=== PATIENT | female | born 2005 | race Caucasian/White ===

== ENCOUNTER 2024-09-28 10:56 | Emergency (ER) | payer MEDICAID, SELFPAY ==
[2024-09-28 10:57] VITALS: BMI 23.5
[2024-09-28 11:36] VITALS: BP 123/90; PULSE 97; RESP 16; TEMP 37.1; O2SAT 100; BMI 23.0
--- NOTE | 2024-09-28 11:37 | XR_ITS ---
Examination: Cervical spine 3 views Technique one AP lateral coned AP odontoid cervical spine 3 views Exam date and time: September 28, 2024 1153 hours INDICATIONS: Neck pain today. FINDINGS: Satisfactory alignment cervical vertebral bodies on the lateral view No cervical fracture No significant cervical disc narrowing Cervical thoracic levoscoliosis 12 degrees IMPRESSION: No cervical fracture or significant cervical disc narrowing
--- NOTE | 2024-09-28 12:32 | EDNOTE_ITS ---
ED Neck Injury Pain RME/HPI General Chief Complaint: Neck Pain/Injury Stated Complaint: NECK PAIN Time Seen by Provider: 09/28/24 11:24 Arrival date/time: 09/28/24 10:56 19-year-old female presents to the emergency department complains of neck pain after twisting her neck patient reports no fever nausea or vomiting reports no dizziness or weakness no numbness or tingling Limitations: no limitations Related Data Previous Rx's ?Medication ?Instructions ?Recorded cyclobenzaprine 10 mg tablet 10 mg PO TID PRN muscle spasm 10 09/28/24 days #30 tab-caps ibuprofen 600 mg tablet 600 mg PO Q6H #30 tabs 09/28/24 Allergies Allergy/AdvReac Type Severity Reaction Status Date / Time No Known Allergies Allergy Verified 09/28/24 10:59 Review of Systems Review of Systems Systems Reviewed: All systems reviewed, normal except as documented Constitutional Constitutional: Reports system reviewed and no additional complaints, except as documented, Denies fever(s) and Denies headache(s) Eyes Eyes: Reports system reviewed and no additional complaints, except as documented and Denies blurry vision ENT Ears, Nose, Mouth, and Throat: Reports system reviewed and no additional complaints, except as documented, Denies headache(s), Denies nasal congestion, Denies nasal discharge and Reports neck pain Cardiovascular Cardiovascular: Reports system reviewed and no additional complaints, except as documented, Denies chest pain and Denies dyspnea Respiratory Respiratory: Reports system reviewed and no additional complaints, except as documented, Denies chest congestion, Denies cough and Denies dyspnea Gastrointestinal Gastrointestinal: Reports system reviewed and no additional complaints, except as documented and Denies abdominal pain Musculoskeletal Musculoskeletal: Reports neck pain Integumentary/Breasts Skin/Breast: Reports system reviewed and no additional complaints, except as documented and Denies rash Neurologic Neurologic: Reports system reviewed and no additional complaints, except as documented, Reports as per HPI and Denies headache(s) Past Medical History Past Medical History NEUROLOGIC: Negative Neurological Disorders CARDIAC: Negative Cardiac Disorders or Congestive Heart Failure RESPIRATORY: Negative Chronic Obstructive Pulmonary Disease (COPD) GASTROINTESTINAL: Negative Gastrointestinal Disorders GENITOURINARY: Negative Genitourinary Disorders or Renal Disease MUSCULOSKELETAL: Negative Musculoskeletal Disorders ENDOCRINE: Negative Endocrine Disorders, Diabetes Mellitus Type 1 or Diabetes Mellitus Type 2 HEMATOLOGIC: Negative Blood Disorders PSYCHO/SOCIAL: Positive Depression and Self-Mutilation OTHER HISTORY: Negative Autoimmune Disease or Cancer Family History FAMILY HISTORY: Positive Family Cardiac Disorders Surgical History SURGICAL: Negative Abdominal Surgery, Nephrectomy, Joint Replacement or Mastectomy Social History SMOKING STATUS: Never smoker SUBSTANCE USE: does not use ED Exam General Limitations: Present no limitations General appearance: Present alert and in no apparent distress Head Head exam: Present atraumatic, normocephalic and normal inspection Eye Eye exam: Present normal appearance, PERRL and EOMI; Absent conjunctival injection ENT ENT exam: Present normal exam, normal oropharynx and mucous membranes moist Neck Neck exam: Present normal inspection, full ROM, trachea midline and tenderness Chest Chest inspection: Present normal inspection and symmetric chest wall rise; Absent tenderness Respiratory Respiratory exam: Present normal lung sounds bilaterally; Absent respiratory distress Cardiovascular Cardiovascular exam: Present regular rate, normal rhythm and normal heart sounds Abdominal Exam Abdominal exam: Present soft and normal bowel sounds Extremities Exam Extremities exam: Present normal inspection and full ROM Back Exam Back exam: Present normal inspection and full ROM Neurological Exam Neurological exam: Present alert, oriented X3 and CN II-XII intact Psychiatric Psychiatric exam: Present normal affect and normal mood Skin Skin exam: Present warm, dry, intact and normal color Course Quality Measures none Orders Category Date Time Status XR cervical spine 2-3V Stat Exams 09/28/24 11:37 Completed Vital Signs Vital signs: Vital Signs Temperature 98.7 F 09/28/24 11:36 Pulse Rate 97 09/28/24 11:36 Respiratory Rate 16 09/28/24 11:36 Blood Pressure 123/90 H 09/28/24 11:36 Pulse Oximetry (%) 100 09/28/24 11:36 Oxygen Delivery Method Room Air 09/28/24 11:36 O2 saturation 100% room air within normal limits Neck Pain MDM Narrative MDM Narrative:: 19-year-old female presents to the emergency department complains of neck pain after twisting her neck patient reports no fever nausea or vomiting reports no dizziness or weakness no numbness or tingling On exam patient well-appearing patient does not appear ill or toxic patient is well-appearing acute distress patient walks with steady gait Imaging obtained no acute emergent findings noted Patient discharged home in no distress to follow-up with primary care doctor in the next 24 to 48 hours and for any worsening symptoms to return to the ER immediately Patient data External records reviewed:: [facility] previous records Clinical information provided by:: patient Social determinants that could affect healthcare access:: none Patient has the following chronic illnesses:: None How is presenting disease/condition affected by chronic disease/condition?: no chronic disease Evaluation data The following diagnostics were reviewed and interpreted by me:: radiology exam(s) Lab and/or radiology exams considered but not ordered:: Radiology obtain Interpretation Summary: Reviewed by me Medications / Prescriptions Medications or Prescriptions considered but not ordered:: Given Medication administrations:: Given Consultations Consultation(s) initiated? (list below): No Diagnosis Neck Differential Diagnosis: disc disorder of cervical region, whiplash injury to neck and torticollis Most likely diagnosis given after review of the tests above:: Neck pain Admission Indicated Admission indicated?: not indicated Admission Request Was there a request for admission?: No Disposition Plan Disposition Plan: Discharge Discharge Attestation Discharge Attestation: The patient and all family members were given an opportunity to ask questions and understood the discharge instructions. Discharge instructions specifically effects, indications for sooner follow up or return to the emergency department, and the expected course of current diagnosis. Patient condition: Stable Discharge Plan Plan Patient Disposition: HOME (Self Care) Disposition Comment: Stable Prescriptions/Referrals Prescriptions/Med Rec: New cyclobenzaprine 10 mg tablet 10 mg PO TID PRN (Reason: muscle spasm) 10 Days Qty: 30 0RF ibuprofen 600 mg tablet 600 mg PO Q6H Qty: 30 0RF Problem List Clinical Impression: Neck pain Patient/Caregiver Discharge Instructions Education Materials: ED Neck Pain Additional Instructions: Please follow up with your primary care doctor in the next 24-48hrs for any worsening symptoms return here immediately Print Language: Syrian Stand Alone Forms: Elly Award Info., Work/School Release, Patient Portal Info Letter ELIZABETH/EDWIGE Supervising Physician ELIZABETH/EDWIGE Supervising Physician: Dr Muller
== END 2024-09-28 12:51 | disposition home or self-care (01) ==
PROVIDERS: Emergency Provider Emergency Medicine
DX: M54.2 Cervicalgia (principal)
CPT/HCPCS: 72040; 99283

== ENCOUNTER 2025-02-23 07:12 | Emergency (ER) | payer BC, MEDICAID, SELFPAY ==
[2025-02-23 07:38] VITALS: BP 110/73; PULSE 82; RESP 16; TEMP 36.7; O2SAT 100; BMI 21.8
--- NOTE | 2025-02-23 07:54 | EDNOTE_ITS ---
<Statement entered by Candelaria Rodriguez MD - 02/23/25 08:59> As co-signing physician, I was present and available for consult prn. I concur with the plan and care as documented by the midlevel provider. ED Wound/Laceration-RME/HPI General Chief Complaint: Wound/Laceration Stated Complaint: Laceration to right thumb Time Seen by Provider: 02/23/25 07:13 Arrival date/time: 02/23/25 07:12 20-year-old female presents to the emergency department today for complaints of laceration left hand thumb. Patient reports she accidentally cut herself with a knife today patient reports tetanus up-to-date no chance of Limitations: no limitations Related Data Previous Rx's ?Medication ?Instructions ?Recorded ibuprofen 600 mg tablet 600 mg PO Q6H #30 tabs 09/28 Allergies Allergy/AdvReac Type Severity Reaction Status Date / Time No Known Allergies Allergy Verified 02/23/25 07:13 Review of Systems Review of Systems Systems Reviewed: All systems reviewed, normal except as documented Constitutional Constitutional: Reports system reviewed and no additional complaints, except as documented, Denies fever(s) and Denies headache(s) Eyes Eyes: Reports system reviewed and no additional complaints, except as documented and Denies blurry vision ENT Ears, Nose, Mouth, and Throat: Reports system reviewed and no additional complaints, except as documented, Denies headache(s), Denies nasal congestion and Denies nasal discharge Cardiovascular Cardiovascular: Reports system reviewed and no additional complaints, except as documented, Denies chest pain and Denies dyspnea Respiratory Respiratory: Reports system reviewed and no additional complaints, except as documented, Denies chest congestion, Denies cough and Denies dyspnea Gastrointestinal Gastrointestinal: Reports system reviewed and no additional complaints, except as documented and Denies abdominal pain Integumentary/Breasts Skin/Breast: Reports system reviewed and no additional complaints, except as documented, Denies rash and Reports wounds (Laceration left hand) Neurologic Neurologic: Reports system reviewed and no additional complaints, except as documented, Reports as per HPI and Denies headache(s) Past Medical History Past Medical History NEUROLOGIC: Negative Neurological Disorders CARDIAC: Negative Cardiac Disorders or Congestive Heart Failure RESPIRATORY: Negative Chronic Obstructive Pulmonary Disease (COPD) GASTROINTESTINAL: Negative Gastrointestinal Disorders GENITOURINARY: Negative Genitourinary Disorders or Renal Disease MUSCULOSKELETAL: Negative Musculoskeletal Disorders ENDOCRINE: Negative Endocrine Disorders, Diabetes Mellitus Type 1 or Diabetes Mellitus Type 2 HEMATOLOGIC: Negative Blood Disorders PSYCHO/SOCIAL: Positive Depression and Self-Mutilation OTHER HISTORY: Negative Autoimmune Disease or Cancer Family History FAMILY HISTORY: Positive Family Cardiac Disorders Surgical History SURGICAL: Negative Abdominal Surgery, Nephrectomy, Joint Replacement or Mastectomy Social History SMOKING STATUS: Never smoker SUBSTANCE USE: does not use ED Exam General Limitations: Present no limitations General appearance: Present alert and in no apparent distress Head Head exam: Present atraumatic Eye Eye exam: Present normal appearance, PERRL and EOMI ENT ENT exam: Present normal exam, normal oropharynx and mucous membranes moist Neck Neck exam: Present normal inspection, full ROM and trachea midline Chest Chest inspection: Present normal inspection and symmetric chest wall rise Respiratory Respiratory exam: Present normal lung sounds bilaterally Cardiovascular Cardiovascular exam: Present regular rate, normal rhythm and normal heart sounds Abdominal Exam Abdominal exam: Present soft and normal bowel sounds Extremities Exam Extremities exam: Present full ROM and tenderness; Absent joint swelling Back Exam Back exam: Present normal inspection and full ROM Neurological Exam Neurological exam: Present alert, oriented X3 and CN II-XII intact Psychiatric Psychiatric exam: Present normal affect and normal mood Skin Skin exam: Present warm, dry and other (Laceration left hand) Course Quality Measures none Orders Category Date Time Status Set Up Suture Tray STAT Care 02/23/25 07:59 Completed Wound Care NOW Care 02/23/25 07:59 Completed Lidocaine 1% 20 ml [Xylocaine 1% 20 ML] Med 02/23/25 07:59 Discontinued 20 ml INFL X1 ONE Vital Signs Vital signs: Vital Signs Temperature 98.0 F 02/23/25 07:38 Pulse Rate 82 02/23/25 07:38 Respiratory Rate 16 02/23/25 07:38 Blood Pressure 110/73 02/23/25 07:38 Pulse Oximetry (%) 100 02/23/25 07:38 Oxygen Delivery Method Room Air 02/23/25 07:38 O2 saturation 100% on room air within normal limits Procedures -ED Laceration Laceration 1: Site: hand Side (If applicable): left Size (cm): 3 Description: linear Depth: simple, single layer Local Anesthetic: lidocaine 1% and bupivacaine 0.5% Amount of anesthesia used (mL): 6 Pre-repair: wound explored and irrigated extensively Skin layer closed with: nylon Size (cm): 5-0 Number of sutures: 5 Technique: simple, interrupted Wound / Laceration MDM Narrative MDM Narrative:: 20-year-old female presents to the emergency department today for complaints of laceration left hand thumb. Patient reports she accidentally cut herself with a knife today patient reports tetanus up-to-date no chance of On exam patient well-appearing patient does not appear ill or toxic On exam patient has laceration approximately 3 cm left thumb relatively superficial no evidence of tendon or ligamentous injury Wound irrigated copiously laceration repaired with 5 sutures Patient discharged home in no distress to follow-up with primary care doctor in the next 24 to 48 hours and for any worsening symptoms to return to the ER i mmediately Patient data External records reviewed:: [facility] previous records Clinical information provided by:: patient Social determinants that could affect healthcare access:: none Patient has the following chronic illnesses:: None How is presenting disease/condition affected by chronic disease/condition?: no chronic disease Evaluation data The following diagnostics were reviewed and interpreted by me:: other (specify) (N/A) Lab and/or radiology exams considered but not ordered:: Consider not ordered Interpretation Summary: N/A Medications / Prescriptions Medications or Prescriptions considered but not ordered:: Given Medication administrations:: Medication Administration History Discontinued Medications Lidocaine HCl (Lidocaine Hcl 1% 20 Ml Vial) 20 ml INFL X1 ONE Stop: 02/23/25 08:00 Last Admin: 02/23/25 08:01 Dose: 20 ml Documented By: Comments: ADMINISTERED BY LAURIE Nogueira Consultations Consultation(s) initiated? (list below): No Diagnosis Wound Differential Diagnosis: laceration, abrasion and avulsion of skin Most likely diagnosis given after review of the tests above:: Laceration Admission Indicated Admission indicated?: not indicated Admission Request Was there a request for admission?: No Disposition Plan Disposition Plan: Discharge Discharge Attestation Discharge Attestation: The patient and all family members were given an opportunity to ask questions and understood the discharge instructions. Discharge instructions specifically effects, indications for sooner follow up or return to the emergency department, and the expected course of current diagnosis. Patient condition: Stable Discharge Plan Plan Patient Disposition: HOME (Self Care) Discharge Disposition comment: Stable Prescriptions/Referrals Prescriptions/Med Rec: No Action ibuprofen 600 mg tablet 600 mg PO Q6H Qty: 30 0RF Problem List Clinical Impression: Laceration of left thumb Patient/Caregiver Discharge Instructions Education Materials: ED Laceration: All Closures Additional Instructions: Please follow up with your primary care doctor in the next 24-48hrs for any worsening symptoms return here immediately Please have sutures removed in 10 days Print Language: Chinese Stand Alone Forms: Elly Award Info., Patient Portal Info Letter PA/SEAFOOD HARVESTER Supervising Physician PA/SEAFOOD HARVESTER Supervising Physician: Dr. rodriguez
[2025-02-23] MEDS: LIDOCAINE HCL 1% 20 ML VIAL INFL (08:01)
== END 2025-02-23 08:07 | disposition home or self-care (01) ==
LOC: SERX 08:07
PROVIDERS: Emergency Provider Emergency Medicine; PCP Family Medicine
DX: S61.012A Laceration without foreign body of left thumb without damage to nail, initial encounter (principal); W26.0XXA Contact with knife, initial encounter
CPT/HCPCS: 12002; 99283; J3490

== ENCOUNTER 2025-08-20 17:38 | Emergency (ER) | payer BC, MEDICAID, SELFPAY ==
[2025-08-20 18:22] VITALS: BP 115/81; PULSE 92; RESP 20; TEMP 37.1; O2SAT 97
--- NOTE | 2025-08-20 18:33 | PD.EDNV ---
Nausea/Vomit./Diarrhea-RME/HPI General Chief complaint: Nausea/Vomiting/Diarrhea Stated complaint: Vomiting X 2 days, fever, cough, sore throat Time Seen by Provider: 08/20/25 17:56 Arrival date/time: 08/20/25 17:38 20-year-old female patient came in for evaluation regarding sore throat, fever, nonproductive cough and vomiting has been ongoing for the last 2 days. Denies any abdominal pain denies any chest pain coughing denies any other complaints. No medication was taken prior to ER visit. Related Data Previous Rx's ?Medication ?Instructions ?Recorded ibuprofen 600 mg tablet 600 mg PO Q6H #30 tabs 09/28/24 ondansetron HCl 4 mg tablet 4 mg PO Q8H PRN nausea and 08/20/25 vomiting 4 days #20 tabs Allergies Allergy/AdvReac Type Severity Reaction Status Date / Time No Known Allergies Allergy Verified 08/20/25 17:43 Review of Systems Review of Systems Narrative Review of Systems: Review of system reviewed and within normal limits except mentioned in HPI ED Exam Narrative Physical exam: VITAL SIGNS: Reviewed. GENERAL APPEARANCE: Alert and interactive, follows commands, no acute distress, HEAD AND FACE: Non-traumatic. ENT: PERRL, pink conjunctivitis, eyelid no trauma, Mucous membrane moist. NECK: Supple, nontender, no nuchal rigidity. CHEST: No tenderness, no crepitus, no paradoxical movement, no retractions. LUNGS: Clear, well ventilated, symmetric, no rales, no wheezing, no ronchi, no stridor, good breath sounds bilaterally. HEART: Regular rate, regular rhythm, no murmur, no gallops. ABDOMEN: Soft, positive bowel sounds, nondistended, no guarding, nontender, no rebound, no masses, RECTAL: Deferred. GENITAL: Deferred. NEUROLOGICAL: Gross motor function intact sensory function intact, Appropriate for age. MUSCULOSKELETAL: low back nontender, full range of motion. EXTREMITIES: Nontender, full range of motion. SKIN: Color pink, dry, no rash, no lacerations, no abrasions, no contusions. LYMPHATICS: Deferred. Course Quality Measures none Orders Category Date Time Status HCG Qualitative,Urine Stat Lab 08/20/25 19:30 Completed Strep A Rapid Stat Lab 08/20/25 18:41 Completed UA, C/S IF [Urinalysis, C/S if Indicated] Stat Lab 08/20/25 19:30 Completed Ondansetron Odt [Zofran Odt] Med 08/20/25 18:32 Discontinued 4 mg PO X1 ONE Vital Signs Vital signs: Vital Signs Temperature 98.7 F 08/20/25 18:22 Pulse Rate 92 08/20/25 18:22 Respiratory Rate 20 08/20/25 18:22 Blood Pressure 115/81 08/20/25 18:22 Pulse Oximetry (%) 97 08/20/25 18:22 Oxygen Delivery Method Room Air 08/20/25 18:22 Nausea/Vomiting/Diarrhea MDM Narrative MDM Narrative:: 20-year-old female patient came in for evaluation regarding sore throat, fever, nonproductive cough and vomiting has been ongoing for the last 2 days. Denies any abdominal pain denies any chest pain coughing denies any other complaints. No medication was taken prior to ER visit. Patient's workup today all came back unremarkable. On multiple reevaluation patient cannot be located in the emergency room patient eloped Patient data External records reviewed:: None Clinical information provided by:: patient Social determinants that could affect healthcare access:: none Patient has the following chronic illnesses:: None How is presenting disease/condition affected by chronic disease/condition?: no chronic disease Evaluation data The following diagnostics were reviewed and interpreted by me:: lab results Lab and/or radiology exams considered but not ordered:: None Interpretation Summary: See MDM Medications / Prescriptions Medications / Prescriptions considered but not ordered:: None Medication administrations:: Medication Administration History Discontinued Medications Ondansetron HCl (Ondansetron Odt 4 Mg Tabrap) 4 mg PO X1 ONE; Protocol Stop: 08/20/25 18:33 Last Admin: 08/20/25 18:37 Dose: 4 mg Documented By: EVANGELINA Denny Consultations Consultation(s) initiated? (list below): No Diagnosis Nausea Differential Diagnosis: gastroenteritis and dehydration Most likely diagnosis given after review of the tests above:: Nausea and vomiting Admission Indicated Admission indicated?: not indicated Admission Request Was there a request for admission?: No Disposition Plan Disposition Plan: other (specify) (Elopement) Discharge Plan Plan Patient Disposition: Elopement Prescriptions/Referrals Prescriptions/Med Rec: New ondansetron HCl 4 mg tablet 4 mg PO Q8H PRN (Reason: nausea and vomiting) 4 Days Qty: 20 0RF No Action ibuprofen 600 mg tablet 600 mg PO Q6H Qty: 30 0RF Referrals: Harsha Dueñas MD [Primary Care Provider, Family Practice] - In 1 week Problem List Clinical Impression: Nausea and vomiting Patient/Caregiver Discharge Instructions Print Language: Gabonese Stand Alone Forms: Elly Award Info., Patient Portal Info Letter
[2025-08-20] MEDS: ONDANSETRON ODT 4 MG TABRAP PO (18:37)
[2025-08-20 19:04] LABS: Strep A Rapid Negative (Negative)
[2025-08-20 19:43] LABS: Collection Type, Urine Clean Catch
[2025-08-20 19:49] LABS: HCG Qualitative,Urine Negative
[2025-08-20 19:52] LABS: Bilirubin,Urine Negative (Negative); Blood,Urine Negative (Negative); Clarity,Urine Turbid (Clear/Hazy); Color,Urine Yellow (Lt Yel-Yel); Culture Indicated,Urine Not Indicated; Glucose, Urine Negative (Negative); Ketones,Urine 3+ (Negative); Leukocyte Esterase,Urine Negative (Negative); Nitrite,Urine Negative (Negative); PH,Urine 7.0 (5.0-7.0); Protein,Urine 1+ (Neg - Trace); RBC,Urine 7 /hpf (0-3); Specific Gravity,Urine 1.030 (1.001-1.035); Squamous Epithelial Cell,Urine 11 /hpf (0-5); Urobilinogen,Urine 12 mg/dL (0.0-1.0); WBC,Urine 6 /hpf (0-5)
--- NOTE | 2025-08-20 20:55 | PC.NURSE ---
Pt was called back to get reviewed by provider and was not found in the lobby or outside.
--- NOTE | 2025-08-20 21:15 | PC.NURSE ---
NO ANSWER FOR CALL BACK TO MAIN ED
--- NOTE | 2025-08-20 21:23 | PC.NURSE ---
NO ANSWER FOR CALL BACK TO MAIN ED
== END 2025-08-20 21:24 | disposition left against medical advice (07) ==
PROVIDERS: Nurse Practitioner Family; Emergency Provider Emergency Medicine; PCP Family Medicine
DX: R11.2 Nausea with vomiting, unspecified (principal); Z53.29 Procedure and treatment not carried out because of patient's decision for other reasons
CPT/HCPCS: 81001; 81025; 87651; 99282; Q0162

== ENCOUNTER 2025-09-08 10:18 | Emergency (ER) | payer BC, MEDICAID, SELFPAY ==
[2025-09-08 10:33] VITALS: BP 114/75; PULSE 110; RESP 19; TEMP 37; O2SAT 98; BMI 23.0
--- NOTE | 2025-09-08 10:42 | XR_ITS ---
Examination: Abdomen sonogram, Limited Date and time of exam: September 08, 2025, 1105 hours INDICATIONS: Right upper abdominal pain nausea vomiting beginning midnight Technique: Real-time joe scale transabdominal sonographic images of the upper abdomen obtained. Findings: Negative for gallstones Normal gallbladder wall Common bile duct 0.35 cm Pancreatic head 1.7 cm Liver 16.3 cm no liver lesions Normal hepatopetal portal venous flow Patent IVC IMPRESSION: Negative for cholelithiasis, negative for cholecystitis Normal common bile duct
--- NOTE | 2025-09-08 10:42 | XR_ITS ---
EXAMINATION: PA lateral chest 2 views TECHNIQUE: Upright PA lateral chest 2 views Date and time: September 08, 2025, 11:29 a.m. INDICATIONS: Lower chest pain today. FINDINGS: Normal heart size No lobar pneumonia or pulmonary edema. The osseous structures are intact IMPRESSION: No lobar pneumonia or pulmonary edema
--- NOTE | 2025-09-08 10:43 | EDRME_ITS ---
Rapid Medical Screening Exam [facility] Arrival date/time: 09/08/25 10:18 20-year-old female presents to the Emergency Department for complaints of right- sided chest pain and upper back pain, cough, nausea. Chief Complaint: Shortness of Breath/Dyspnea Vital signs: Vital Signs Temperature 98.6 F 09/08/25 10:33 Pulse Rate 110 H 09/08/25 10:33 Respiratory Rate 19 09/08/25 10:33 Blood Pressure 114/75 09/08/25 10:33 Pulse Oximetry (%) 98 09/08/25 10:33 Oxygen Delivery Method Room Air 09/08/25 10:33 Vital signs reviewed by provider: Yes Exam: On exam patient appears ill but not toxic Clinical Impression: Lab work imaging and EKG obtained
[2025-09-08] MEDS: ONDANSETRON ODT 4 MG TABRAP PO (10:53)
[2025-09-08 11:45] LABS: Basophils # (Auto) 0.1 Thou/mm3 (0.0-0.2); Basophils % (Auto) 0 % (0-2.5); Eosinophils # (Auto) 0.0 Thou/mm3 (0.0-0.5); Eosinophils % (Auto) 0 % (0-10); Hematocrit 38.1 % (36.0-46.0); Hemoglobin 13.0 g/dL (12.0-16.0); Immature Granulocytes Auto 0.04 Thou/mm3 (0.00-0.00); Lymphocytes # (Auto) 0.7 Thou/mm3 (1.0-4.8); Lymphocytes % (Auto) 4 % (10-50); Mean Corpuscular HGB Conc 34.1 g/dl (31.0-37.0); Mean Corpuscular Hemoglobin 31.4 pg (25.0-35.0); Mean Corpuscular Volume 92 fL (80-100); Monocytes # (Auto) 1.2 Thou/mm3 (0.0-0.8); Monocytes % (Auto) 7 % (0-12); Neutrophils # (Auto) 14.8 Thou/mm3 (1.8-7.7); Neutrophils % (Auto) 88 % (37-80); Nucleated Red Blood Cell # 0.00 Thou/mm3 (0.00-0.00); Nucleated Red Blood Cell % 0 /100 WBC (0); Platelet Count 262 Thou/mm3 (140-440); RDW Standard Deviation 39.6 fL (36.4-46.3); Red Blood Count 4.14 Miln/mm3 (4.00-5.20); White Blood Count 16.8 Thou/mm3 (3.6-11.0)
[2025-09-08 11:47] LABS: Alanine Aminotransferase 20 U/L (10-49); Albumin, Serum 5.1 gm/dL (3.5-5.0); Albumin/Globulin Ratio 2.3 (1.2-2.2); Alkaline Phosphatase 54 U/L (46-116); Anion Gap 10 (7-16); Aspartate Amino Transferase 23 U/L (0-34); BUN/Creatinine Ratio 9 Ratio (12-20); Bilirubin,Total 0.9 mg/dL (0.3-1.2); Blood Urea Nitrogen 6 mg/dL (9-23); Calcium 9.2 mg/dL (8.3-10.6); Calcium (Corrected) 9.2 mg/dL (8.5-10.1); Carbon Dioxide 26.2 mMol/L (20.0-31.0); Chloride 107 mMol/L (98-107); Creatinine (Component) 0.7 mg/dL (0.6-1.3); Estimated Creatinine Clearance 114.4 mL/min (>60); Globulin 2.2 gm/dL (2.3-3.5); Glucose 141 mg/dL (74-106); Lipase 21 U/L (12-53); Magnesium 1.8 mg/dL (1.6-2.6); Osmolality,Calculated 284 (275-295); Potassium 4.5 mMol/L (3.4-5.1); Sodium 143 mMol/L (136-145); Total Protein 7.3 gm/dL (5.7-8.2); Troponin I < 0.002 ng/mL (0.0-0.045); eGFR > 60 See Note
[2025-09-08 11:48] LABS: D-Dimer < 250 ng/mL (<600)
[2025-09-08 12:21] LABS: Collection Type, Urine Clean Catch
[2025-09-08 12:37] LABS: HCG Qualitative,Urine Negative
[2025-09-08 12:46] LABS: Bilirubin,Urine Negative (Negative); Blood,Urine 2+ (Negative); Clarity,Urine Turbid (Clear/Hazy); Color,Urine Yellow (Lt Yel-Yel); Glucose, Urine Negative (Negative); Hyaline Casts,Urine < 1 /hpf (0-1); Ketones,Urine Trace (Negative); Leukocyte Esterase,Urine Negative (Negative); Nitrite,Urine Negative (Negative); PH,Urine 6.0 (5.0-7.0); Protein,Urine 1+ (Neg - Trace); RBC,Urine 3 /hpf (0-3); Specific Gravity,Urine 1.033 (1.001-1.035); Squamous Epithelial Cell,Urine 4 /hpf (0-5); Urobilinogen,Urine Negative mg/dL (0.0-1.0); WBC,Urine 13 /hpf (0-5)
[2025-09-08 12:51] LABS: Amphetamine/Methamp Scrn,U Negative (Negative); Barbiturate Screen,Urine Negative (Negative); Benzodiazepines Screen,Urine Negative (Negative); Benzoylecgonine Screen, Ur Negative (Negative); Fentanyl Screen,Urine Negative (Negative); Opiate Screen,Urine Negative (Negative); THC Screen,Urine Positive (Negative)
[2025-09-08 12:52] LABS: Culture Indicated,Urine Yes
[2025-09-08 14:04] VITALS: BP 120/75; PULSE 107; RESP 20; TEMP 36.9; O2SAT 98
--- NOTE | 2025-09-08 15:28 | PD.EDNV ---
Nausea/Vomit./Diarrhea-RME/HPI General Chief complaint: Shortness of Breath/Dyspnea Stated complaint: R) UPPER CHEST PAIN, DYSPNEA, VOMITING SINCE MN Time Seen by Provider: 09/08/25 12:54 Arrival date/time: 09/08/25 10:18 20-year-old female patient came in for evaluation regarding vomiting. Onset of symptoms since midnight as sudden onset of right subcostal pain, described as dull ache, severity moderate associated with shortness of breath, vomiting, nonbloody. Patient denies any fever denies any cough denies any trauma to the chest. Denies any other complaints no medication was taken prior to ER visit. Patient admits to be smoking marijuana. RME / HPI RME / HPI Narrative: 09/08/25 10:18 20-year-old female presents to the Emergency Department for complaints of right-sided chest pain and upper back pain, cough, nausea. Exam: On exam patient appears ill but not toxic Impression: Lab work imaging and EKG obtained Related Data Previous Rx's ?Medication ?Instructions ?Recorded ibuprofen 600 mg tablet 600 mg PO Q6H #30 tabs 09/28/24 ibuprofen 600 mg tablet 600 mg PO Q8H PRN pain #30 tabs 09/08/25 metoclopramide HCl 10 mg tablet 10 mg PO Q6H PRN nausea and 09/08/25 (Reglan) vomiting #30 tabs Allergies Allergy/AdvReac Type Severity Reaction Status Date / Time No Known Allergies Allergy Verified 09/08/25 10:21 Review of Systems Review of Systems Narrative Review of Systems: Review of system reviewed and within normal limits except mentioned in HPI ED Exam Narrative Physical exam: VITAL SIGNS: Reviewed. GENERAL APPEARANCE: Alert and interactive, follows commands, no acute distress, HEAD AND FACE: Non-traumatic. ENT: PERRL, pink conjunctivitis, eyelid no trauma, Mucous membrane moist. NECK: Supple, nontender, no nuchal rigidity. CHEST: No tenderness, no crepitus, no paradoxical movement, no retractions. LUNGS: Clear, well ventilated, symmetric, no rales, no wheezing, no ronchi, no stridor, good breath sounds bilaterally. HEART: Regular rate, regular rhythm, no murmur, no gallops. ABDOMEN: Soft, positive bowel sounds, nondistended, no guarding, right subcostal tenderness, no rebound, no masses, RECTAL: Deferred. GENITAL: Deferred. NEUROLOGICAL: Gross motor function intact sensory function intact, Appropriate for age. MUSCULOSKELETAL: low back nontender, full range of motion. EXTREMITIES: Nontender, full range of motion. SKIN: Color pink, dry, no rash, no lacerations, no abrasions, no contusions. LYMPHATICS: Deferred. Course Quality Measures none Orders Category Date Time Status EKG (ED ONLY) *Do not use* NOW Care 09/08/25 10:38 Completed EKG (ED Only) Stat Exams 09/08/25 10:37 Ordered US gall bladder Stat Exams 09/08/25 10:42 Completed XR chest 2V Stat Exams 09/08/25 10:42 Completed CBC Stat Lab 09/08/25 11:18 Completed Comprehensive Metabolic Panel Stat Lab 09/08/25 11:18 Completed D-Dimer Stat Lab 09/08/25 11:18 Completed Drug Screen,Urine Stat Lab 09/08/25 11:40 Completed HCG Qualitative,Urine Stat Lab 09/08/25 11:40 Completed Lipase Stat Lab 09/08/25 11:18 Completed Magnesium Stat Lab 09/08/25 11:18 Completed Troponin I Stat Lab 09/08/25 11:18 Completed Urinalysis, C/S if Indicated Stat Lab 09/08/25 11:40 Completed Urine Culture Stat Lab 09/08/25 11:40 Received Famotidine [Pepcid] Med 09/08/25 15:25 Once 40 mg PO X1 ONE Ketorolac Inj [Toradol Inj] Med 09/08/25 15:25 Once 30 mg IM X1 ONE Metoclopramide [Reglan] Med 09/08/25 15:25 Once 10 mg PO X1 ONE Ondansetron Odt [Zofran Odt] Med 09/08/25 10:42 Discontinued 4 mg PO X1 ONE Vital Signs Vital signs: Vital Signs Temperature 98.6 F 09/08/25 10:33 Pulse Rate 110 H 09/08/25 10:33 Respiratory Rate 19 09/08/25 10:33 Blood Pressure 114/75 09/08/25 10:33 Pulse Oximetry (%) 98 09/08/25 10:33 Oxygen Delivery Method Room Air 09/08/25 10:33 Nausea/Vomiting/Diarrhea MDM Narrative MDM Narrative:: 20-year-old female patient came in for evaluation regarding vomiting. Onset of symptoms since midnight as sudden onset of right subcostal pain, described as dull ache, severity moderate associated with shortness of breath, vomiting, nonbloody. Patient denies any fever denies any cough denies any trauma to the chest. Denies any other complaints no medication was taken prior to ER visit. Patient admits to be smoking marijuana. CBC showed leukocytosis of 16.8 positive for marijuana urinalysis no UTI chest x-ray came back unremarkable ultrasound gallbladder also came back normal. Patient was given Toradol IM, Reglan, Pepcid and Zofran with significant improvement of symptoms patient stable for discharge home I advised patient to return to emergency room for worsening of symptoms. Patient was also advised to stop smoking marijuana which could be the reason for the vomiting. Stable discharge home Patient data External records reviewed:: None Clinical information provided by:: patient Social determinants that could affect healthcare access:: substance use Patient has the following chronic illnesses:: None How is presenting disease/condition affected by chronic disease/condition?: no chronic disease Evaluation data The following diagnostics were reviewed and interpreted by me:: lab results and radiology exam(s) Lab and/or radiology exams considered but not ordered:: Plan Interpretation Summary: See above Medications / Prescriptions Medications / Prescriptions considered but not ordered:: None Medication administrations:: Medication Administration History Famotidine (Famotidine 20 Mg Tablet) 40 mg PO X1 ONE Stop: 09/08/25 15:26 Ketorolac Tromethamine (Ketorolac Inj 30 Mg/Ml Vial) 30 mg IM X1 ONE Stop: 09/08/25 15:26 Metoclopramide HCl (Metoclopramide 5 Mg Tablet) 10 mg PO X1 ONE Stop: 09/08/25 15:26 Discontinued Medications Ondansetron HCl (Ondansetron Odt 4 Mg Tabrap) 4 mg PO X1 ONE; Protocol Stop: 09/08/25 10:43 Last Admin: 09/08/25 10:53 Dose: 4 mg Documented By: GM See above Consultations Consultation(s) initiated? (list below): No Diagnosis Nausea Differential Diagnosis: drug-induced nausea and vomiting and other (Nausea vomiting, subcostal chest pain, hyperemesis secondary to marijuana) Most likely diagnosis given after review of the tests above:: Nausea vomiting, chest pain Admission Indicated Admission indicated?: not indicated Admission Request Was there a request for admission?: No Disposition Plan Disposition Plan: Discharge Discharge Attestation Discharge Attestation: The patient was given an opportunity to ask questions and understood the discharge instructions. Discharge instructions specifically effects, indications for sooner follow up or return to the emergency department, and the expected course of current diagnosis. Patient condition: Stable Discharge Plan Plan Patient Disposition: HOME (Self Care) Discharge Disposition comment: Still Prescriptions/Referrals Prescriptions/Med Rec: New metoclopramide HCl [Reglan] 10 mg tablet 10 mg PO Q6H PRN (Reason: nausea and vomiting) Qty: 30 0RF ibuprofen 600 mg tablet 600 mg PO Q8H PRN (Reason: pain) Qty: 30 0RF No Action ibuprofen 600 mg tablet 600 mg PO Q6H Qty: 30 0RF Referrals: No Primary/Family,Physician [Primary Care Provider] - In 1 week Problem List Clinical Impression: Nausea & vomiting, Cannabis abuse Patient/Caregiver Discharge Instructions Discharge Activity: activity as tolerated Education Materials: ED Marijuana Abuse Additional Instructions: Thank you for the opportunity for serving you today. You are stable for discharged . You are advised to: Follow-up with your PCP in 1 to 2 days Return to ED for worsening of symptoms, worsening pain worsening vomiting Increase oral fluids Take medication as prescribed Please stop abusing marijuana Print Language: Estonian Stand Alone Forms: Elly Award Info., Patient Portal Info Letter ELIZABETH/EDWIGE Supervising Physician ELIZABETH/EDWIGE Supervising Physician: MD Mery
--- NOTE | 2025-09-08 16:32 | PC.NURSE ---
@1541 - PT CALLED FROM [facility]; NO ANSWER. @1620 - PT CALLED FROM [facility] ED ENTR[facility] FOR SECOND CALL; NO ANSWER. @1632 - PT CALLED FROM [facility] ED [facility]TR[facility] FOR LAST CALL; NO ANSWER. PT ELOPED.
== END 2025-09-08 16:33 | disposition home or self-care (01) ==
PROVIDERS: Nurse Practitioner Primary Care; Emergency Provider Family Medicine
DX: R11.2 Nausea with vomiting, unspecified (principal); F12.10 Cannabis abuse, uncomplicated; R07.89 Other chest pain; D72.829 Elevated white blood cell count, unspecified; Z71.51 Drug abuse counseling and surveillance of drug abuser
CPT/HCPCS: 36415; 71046; 76705; 80053; 80307; 81001; 81025; 83690; 83735; 84484; 85025; 85379; 87086; 93005; 99283; Q0162